=== PATIENT | female | born 1945 | race Caucasian/White ===

== ENCOUNTER 2017-02-13 18:22 | Inpatient (IN) | payer OTHER, BC ==
[~2017-02-13] VITALS: Ht 154.9 cm; Wt 100.2 kg
[~2017-02-13 18:22] MED LIST: APIDRA SOL100 UNIT/1 SC; COQ-10100 MG PO; COZAAR25 MG PO; HYDROCHLOROTHIA25 MG PO; LANTUS 10100 UNITS/ SC; LOSARTAN POTASS25 MG PO; MEDROL DOSEPAK4 MG PO; NEXIUM40 MG PO; OMEGA-31000 M1 PO; RED YEAST RICE600 MG PO; SYNTHROID100 MCG PO; SYNTHROID25 MCG PO; VITAMIN D5000 UNIT PO
[2017-02-13 19:09] LABS: CHLORIDE 93 mEq/L (99-109); POTASSIUM 3.4 mEq/L (3.7-5.4); SODIUM 127 mEq/L (136-147)
[2017-02-13 19:12] LABS: GLUCOSE 271 mg/dL (70-99)
[2017-02-13 19:13] LABS: ANION GAP 12 MEQ/L (2-14)
[2017-02-13 19:14] LABS: TOTAL BILIRUBIN 1.8 mg/dL (0.0-1.0)
[2017-02-13 19:15] LABS: ALKALINE PHOSPHATASE 99 IU/L (3-129)
[2017-02-13 19:16] LABS: GFR ESTIMATE (CALCULATED) 52 mL/min/
[2017-02-13 19:17] LABS: UREA NITROGEN (BUN) 14 mg/dL (9-23)
[2017-02-13 19:33] LABS: MCH 29.9 PG (29.0-34.0); MCHC 33.9 G/DL (30.0-36.0); MEAN PLAT.VOLUME 9.9 uM^3 (9.5-12.4); PLATELET COUNT 233 K/uL (156-360); RBC DIS.WIDTH-CV 13.4 % (11.8-14.6); RBC DIS.WIDTH-SD 43.6 % (39-53); RED BLOOD COUNT 3.75 M/uL (3.80-5.20); WHITE BLOOD COUNT 21.1 K/uL (4.1-10.2)
[2017-02-13 20:14] LABS: ADD MIUA? YES; BILIRUBIN NEGATIVE; BLOOD MODERATE; COLOR AMBER ((YELLOW)); GLUCOSE (STRIP) >=500; KETONES 20; LEUKOCYTES NEGATIVE; NITRITE NEGATIVE; PROTEIN (STRIP) 100; SPECIFIC GRAVITY 1.021 (1.000-1.030)
[2017-02-13 20:25] LABS: BACTERIA RARE /HPF; EPITHELIAL CELLS 3+ /HPF; HYALINE CASTS 0-5 /LPF; MUCUS 1+ /LPF; RED BLOOD CELLS 0-5 /HPF (0-5); UCUL ADDED? NO; WHITE BLOOD CELLS 0-5 /HPF (0-5)
[2017-02-13 21:03] LABS: INTER. NORMALIZED RATIO 1.2; PTT 40.4 (25-32)
[2017-02-13 23:22] LABS: POINT-OF-CARE METER ID UU13113702
[2017-02-14] MEDS ORDERED: HYDROCHLOROTHIA25 MG PO (01:27)
[2017-02-14] MEDS ORDERED: LEVOTHYROXINE88 MCG PO (01:27)
[2017-02-14] MEDS ORDERED: LOSARTAN POTAS100 MG PO (01:28)
[2017-02-14] MEDS ORDERED: BASAGLAR K100 UNIT/1 SC (01:28)
[2017-02-14 07:33] LABS: EOSINOPHIL (%) 0 % (0-5); HEMATOCRIT 28.8 % (36.0-46.0); IMMATURE GRANULOCYTE (%) 0.6 % (0.0-0.7); IMMATURE GRANULOCYTE COUNT 0.1 K/uL; INSTRUMENT ABS NEUTROPHIL CT 14.2 K/uL; LYMPHOCYTE COUNT 0.7 K/uL (1.0-2.8); MCH 29.8 PG (29.0-34.0); MCHC 32.6 G/DL (30.0-36.0); MCV 91.4 FL (83-99); MONOCYTE (%) 7.7 % (3-12); MONOCYTE COUNT 1.3 K/uL (0-0.8); NEUTROPHIL (%) 87.1 % (45-76); NEUTROPHIL COUNT 14.2 K/uL (1.8-6.4); PLATELET COUNT 181 K/uL (156-360); RBC DIS.WIDTH-CV 13.8 % (11.8-14.6); RBC DIS.WIDTH-SD 46.7 % (39-53); RED BLOOD COUNT 3.15 M/uL (3.80-5.20); WHITE BLOOD COUNT 16.3 K/uL (4.1-10.2)
[2017-02-14 07:36] LABS: ALKALINE PHOSPHATASE 80 IU/L (3-129); ANION GAP 6 MEQ/L (2-14); CHLORIDE 97 MEQ/L (99-109); GFR ESTIMATE (CALCULATED) 58 mL/min/; GLUCOSE 187 mg/dL (70-99); SAMPLE HEMOLYSIS CHECK 0; SAMPLE ICTERIC CHECK 0; SAMPLE LIPEMIA CHECK 0; SODIUM 127 MEQ/L (136-147); UREA NITROGEN (BUN) 16 mg/dL (9-23)
[2017-02-14 07:45] LABS: POTASSIUM 4.2 MEQ/L (3.7-5.4)
[2017-02-14 08:43] VITALS: BP 116/87
[2017-02-14 08:51] LABS: POINT-OF-CARE METER ID UU13113807
[2017-02-14 12:18] LABS: UR CREATININE CONCENTRATION 169.2 MG/DL
[2017-02-14 12:24] LABS: POINT-OF-CARE METER ID UU13113807
[2017-02-14 15:42] VITALS: BP 120/87
[2017-02-14 16:31] LABS: ANION GAP 7 MEQ/L (2-14); CHLORIDE 99 MEQ/L (99-109); CREATINE KINASE 101 IU/L (1-294); GFR ESTIMATE (CALCULATED) 58 mL/min/; GLUCOSE 230 mg/dL (70-99); POTASSIUM 3.8 MEQ/L (3.7-5.4); SAMPLE HEMOLYSIS CHECK 0; SAMPLE ICTERIC CHECK 0; SAMPLE LIPEMIA CHECK 0; SODIUM 129 MEQ/L (136-147); UREA NITROGEN (BUN) 14 mg/dL (9-23)
[2017-02-14 16:42] LABS: URIC ACID 3.5 mg/dL (3.1-9.2)
[2017-02-14 17:31] LABS: POINT-OF-CARE METER ID UU13113807
[2017-02-14 20:00] VITALS: BP 157/68
[2017-02-14 20:04] LABS: INFLUENZA A VIRAL ANTIGEN NEGATIVE; INFLUENZA B VIRAL ANTIGEN NEGATIVE
[2017-02-14 20:32] LABS: C DIFF TOXIN NEGATIVE (NEGATIVE)
[2017-02-14 20:56] LABS: PROBE CHECK PASS; SPECIMEN PROCESSING CONTROL PASS
[2017-02-14 22:23] LABS: POINT-OF-CARE METER ID UU13113807
[2017-02-15] VITALS (7 sets, daily range): BP systolic 117–182; BP diastolic 66–77
[2017-02-15 03:02] LABS: POINT-OF-CARE METER ID UU13113807
[2017-02-15 06:46] LABS: ANION GAP 8 MEQ/L (2-14); CHLORIDE 102 MEQ/L (99-109); GFR ESTIMATE (CALCULATED) > 59 mL/min/; GLUCOSE 170 mg/dL (70-99); POTASSIUM 3.9 MEQ/L (3.7-5.4); SAMPLE HEMOLYSIS CHECK 0; SAMPLE ICTERIC CHECK 0; SAMPLE LIPEMIA CHECK 0; SODIUM 133 MEQ/L (136-147); UREA NITROGEN (BUN) 10 mg/dL (9-23)
[2017-02-15 07:22] LABS: HEMATOCRIT 28.5 % (36.0-46.0); MCH 29.5 PG (29.0-34.0); MCHC 32.3 G/DL (30.0-36.0); MCV 91.3 FL (83-99); MEAN PLAT.VOLUME 10.5 uM^3 (9.5-12.4); PLATELET COUNT 192 K/uL (156-360); RBC DIS.WIDTH-CV 13.8 % (11.8-14.6); RBC DIS.WIDTH-SD 46.1 % (39-53); RED BLOOD COUNT 3.12 M/uL (3.80-5.20); WHITE BLOOD COUNT 11.5 K/uL (4.1-10.2)
[2017-02-15 08:32] LABS: POINT-OF-CARE METER ID UU13113698
[2017-02-15 09:06] LABS: INTERNAL CONTROL VALID? YES
[2017-02-15 11:51] LABS: POINT-OF-CARE METER ID UU13113698
[2017-02-15 17:08] LABS: POINT-OF-CARE METER ID UU13113698
[2017-02-15 22:02] LABS: POINT-OF-CARE METER ID UU13113698
[2017-02-16 03:15] VITALS: BP 138/63
[2017-02-16 03:34] LABS: POINT-OF-CARE METER ID UU13113698
[2017-02-16 06:06] LABS: HEMATOCRIT 25.9 % (36.0-46.0); MCH 29.4 PG (29.0-34.0); MCHC 32.8 G/DL (30.0-36.0); MCV 89.6 FL (83-99); MEAN PLAT.VOLUME 10.1 uM^3 (9.5-12.4); PLATELET COUNT 205 K/uL (156-360); RBC DIS.WIDTH-CV 13.6 % (11.8-14.6); RBC DIS.WIDTH-SD 44.5 % (39-53); RED BLOOD COUNT 2.89 M/uL (3.80-5.20); WHITE BLOOD COUNT 10.2 K/uL (4.1-10.2)
[2017-02-16 06:31] LABS: ANION GAP 9 MEQ/L (2-14); CHLORIDE 103 MEQ/L (99-109); GFR ESTIMATE (CALCULATED) > 59 mL/min/; GLUCOSE 153 mg/dL (70-99); POTASSIUM 3.6 MEQ/L (3.7-5.4); SAMPLE HEMOLYSIS CHECK 0; SAMPLE ICTERIC CHECK 0; SAMPLE LIPEMIA CHECK 0; SODIUM 134 MEQ/L (136-147); UREA NITROGEN (BUN) 8 mg/dL (9-23)
[2017-02-16 08:10] VITALS: BP 122/69
[2017-02-16 08:54] LABS: POINT-OF-CARE METER ID UU13113698
[2017-02-16 12:00] VITALS: BP 128/70
[2017-02-16 12:40] LABS: POINT-OF-CARE METER ID UU13113698
[2017-02-16 15:29] VITALS: BP 142/67
[2017-02-16 17:20] LABS: POINT-OF-CARE METER ID UU13113698
[2017-02-16 19:53] VITALS: BP 177/79
[2017-02-16 21:38] LABS: POINT-OF-CARE METER ID UU13113698
[2017-02-17] VITALS (7 sets, daily range): BP systolic 135–153; BP diastolic 57–92
[2017-02-17 08:06] LABS: INTERNAL CONTROL VALID? YES
[2017-02-17 08:31] LABS: POINT-OF-CARE METER ID UU13113698
[2017-02-17 09:00] LABS: HEMATOCRIT 26.8 % (36.0-46.0); MCH 30.2 PG (29.0-34.0); MEAN PLAT.VOLUME 9.4 uM^3 (9.5-12.4); PLATELET COUNT 265 K/uL (156-360); RBC DIS.WIDTH-CV 13.7 % (11.8-14.6); RBC DIS.WIDTH-SD 44.8 % (39-53); RED BLOOD COUNT 3.01 M/uL (3.80-5.20); WHITE BLOOD COUNT 11.4 K/uL (4.1-10.2)
[2017-02-17 09:30] LABS: ANION GAP 6 MEQ/L (2-14); CHLORIDE 100 MEQ/L (99-109); GFR ESTIMATE (CALCULATED) > 59 mL/min/; POTASSIUM 3.6 MEQ/L (3.7-5.4); SAMPLE HEMOLYSIS CHECK 0; SAMPLE ICTERIC CHECK 0; SAMPLE LIPEMIA CHECK 0; SODIUM 134 MEQ/L (136-147); UREA NITROGEN (BUN) 8 mg/dL (9-23)
[2017-02-17 09:33] LABS: GLUCOSE 99 mg/dL (70-99)
[2017-02-17 16:51] LABS: POINT-OF-CARE METER ID UU13113698
[2017-02-17 21:22] LABS: POINT-OF-CARE METER ID UU13113698
[2017-02-18 03:15] VITALS: BP 184/74
[2017-02-18 03:54] VITALS: BP 165/73
[2017-02-18 04:04] VITALS: BP 143/73
[2017-02-18 04:14] LABS: POINT-OF-CARE METER ID UU13113807
[2017-02-18 08:27] LABS: POINT-OF-CARE METER ID UU13113807
[2017-02-18 12:45] VITALS: BP 196/81
[2017-02-18 13:23] LABS: POINT-OF-CARE METER ID UU13113807
[2017-02-18 17:32] LABS: POINT-OF-CARE METER ID UU13113807
[2017-02-18 20:00] VITALS: BP 168/68
[2017-02-18 21:43] LABS: POINT-OF-CARE METER ID UU13113698
[2017-02-19] VITALS: BP 167/75
[2017-02-19 04:00] VITALS: BP 139/70
[2017-02-19 08:15] VITALS: BP 177/72
[2017-02-19 08:28] LABS: POINT-OF-CARE METER ID UU13113807; POINT-OF-CARE USER ID 606021404
[2017-02-19 08:48] LABS: HEMATOCRIT 29.5 % (36.0-46.0); MCH 29.3 PG (29.0-34.0); MCHC 32.5 G/DL (30.0-36.0); MCV 89.9 FL (83-99); MEAN PLAT.VOLUME 8.8 uM^3 (9.5-12.4); RBC DIS.WIDTH-CV 13.5 % (11.8-14.6); RBC DIS.WIDTH-SD 44.5 % (39-53); RED BLOOD COUNT 3.28 M/uL (3.80-5.20); WHITE BLOOD COUNT 9.2 K/uL (4.1-10.2)
[2017-02-19 08:49] LABS: PLATELET COUNT 382 K/uL (156-360)
[2017-02-19 11:35] VITALS: BP 159/70
[2017-02-19 12:41] LABS: POINT-OF-CARE METER ID UU13113807
[2017-02-19 15:45] VITALS: BP 152/67
[2017-02-19 17:06] LABS: POINT-OF-CARE METER ID UU13113698; POINT-OF-CARE USER ID 606021404
[2017-02-19 20:00] VITALS: BP 159/71
[2017-02-19 22:17] LABS: POINT-OF-CARE METER ID UU13113807
[2017-02-20] VITALS: BP 153/68
[2017-02-20 04:00] VITALS: BP 156/69
[2017-02-20 05:42] LABS: HEMATOCRIT 27.7 % (36.0-46.0); MCH 29.1 PG (29.0-34.0); MCHC 32.5 G/DL (30.0-36.0); MCV 89.6 FL (83-99); MEAN PLAT.VOLUME 8.8 uM^3 (9.5-12.4); PLATELET COUNT 404 K/uL (156-360); RBC DIS.WIDTH-CV 13.6 % (11.8-14.6); RBC DIS.WIDTH-SD 44.5 % (39-53); RED BLOOD COUNT 3.09 M/uL (3.80-5.20); WHITE BLOOD COUNT 9.1 K/uL (4.1-10.2)
[2017-02-20 06:04] LABS: ANION GAP 8 MEQ/L (2-14); CHLORIDE 98 MEQ/L (99-109); GFR ESTIMATE (CALCULATED) > 59 mL/min/; POTASSIUM 3.4 MEQ/L (3.7-5.4); SAMPLE HEMOLYSIS CHECK 0; SAMPLE ICTERIC CHECK 0; SAMPLE LIPEMIA CHECK 0; UREA NITROGEN (BUN) 7 mg/dL (9-23)
[2017-02-20 06:06] LABS: GLUCOSE 67 mg/dL (70-99); SODIUM 142 MEQ/L (136-147)
[2017-02-20 07:59] LABS: POINT-OF-CARE METER ID UU13113807
[2017-02-20 08:43] VITALS: BP 123/59
[2017-02-20 09:12] LABS: POINT-OF-CARE METER ID UU13113807
[2017-02-20] MEDS ORDERED: LEVOFLOXACIN750 MG PO (11:25)
[2017-02-20] MEDS ORDERED: ACIDOPHILUS LA1 EACH PO (11:25)
[2017-02-20] MEDS ORDERED: ULTRA-LIGHT RO1 EACH MC (11:26)
[2017-02-20] MEDS ORDERED: VENTOLIN HFA18 GM IH (11:26)
[2017-02-20 11:27] LABS: POINT-OF-CARE METER ID UU13113807
[2017-02-20 11:29] VITALS: BP 135/63
== END 2017-02-20 13:44 | disposition home health service (06) | DRG 871 ==
LOC: EME 18:22 → 4SOUTH 02-14 01:09 → EDOF 02-14 01:09 → 4SOUTH 02-14 02:31
PROVIDERS: Emergency Medicine; Hospitalist; Internal Medicine; Internal Medicine Infectious Disease; Nurse Practitioner Family
DX: A41.9 Sepsis, unspecified organism (principal); J18.9 Pneumonia, unspecified organism; E87.1 Hypo-osmolality and hyponatremia; E83.51 Hypocalcemia; E11.9 Type 2 diabetes mellitus without complications; K57.30 Diverticulosis of large intestine without perforation or abscess without bleeding; E03.9 Hypothyroidism, unspecified; E78.5 Hyperlipidemia, unspecified; E87.6 Hypokalemia; E66.9 Obesity, unspecified; K21.9 Gastro-esophageal reflux disease without esophagitis; F17.211 Nicotine dependence, cigarettes, in remission; K58.9 Irritable bowel syndrome, unspecified; Z79.4 Long term (current) use of insulin; Z68.36 Body mass index [BMI] 36.0-36.9, adult; Z80.8 Family history of malignant neoplasm of other organs or systems; Z90.710 Acquired absence of both cervix and uterus
CPT/HCPCS: 71010; 71250; 74176; 74230; 80048; 80048 91; 80053; 81003; 82550; 82570; 82948; 83605; 83930; 83935; 84156; 84300; 84443; 84550; 85025; 85027; 85610; 85730; 87040; 87070; 87205; 87449; 87493; 87502; 92610 GN; 92611 GN; 94640; 94640 76; 94760; 94799; 97530 GO; 97530 GP; 99202; 99281; 99285; J0696; J1644; J1815; J1956; J2270; J2405; J2543; J2765; J3260; J3370; J3480; J7030; J7050; Q0164

== ENCOUNTER 2018-02-19 13:30 | Day surgery (SDC) | payer OTHER, BC ==
[~2018-02-19] VITALS: Ht 157.5 cm; Wt 71.6 kg
[~2018-02-19 13:30] MED LIST changes: +ACIDOPHILUS LA1 EACH PO; +BASAGLAR K100 UNIT/1 SC; +COZAAR100 MG PO; +FLONASE16 G1 BOTH NARES; +GLUCOPHAGE500 MG PO; +LEVOFLOXACIN750 MG PO; +LEVOTHYROXINE88 MCG PO; +LOSARTAN POTAS100 MG PO; +OMEPRAZOLE40 M1 PO; +SYNTHROID88 MCG PO; +ULTRA-LIGHT RO1 EACH MC; +VENTOLIN HFA18 GM IH; +ZYRTEC10 M3 PO
[2018-02-19 14:18] VITALS: BP 185/79
[2018-02-19 18:18] VITALS: BP 197/81
[2018-02-19 19:41] VITALS: BP 193/80
[2018-02-19 20:05] VITALS: BP 194/75
== END 2018-02-19 20:12 | disposition home or self-care (01) ==
LOC: SDC 13:30
PROVIDERS: Orthopaedic Surgery Hand Surgery
PROC: 0RRW0JZ Replacement of Right Finger Phalangeal Joint with Synthetic Substitute, Open Approach (ICD-10-PCS; principal; 2018-02-19)
DX: M19.041 Primary osteoarthritis, right hand (principal); M65.841 Other synovitis and tenosynovitis, right hand; I10 Essential (primary) hypertension; I34.1 Nonrheumatic mitral (valve) prolapse; E11.9 Type 2 diabetes mellitus without complications; Z79.4 Long term (current) use of insulin
CPT/HCPCS: 73140; 76000; 82948; C1776; J0131; J0690; J1100; J1885; J2405; J2765; J3010; S0020